=== PATIENT | female | born 1965 | race Caucasian/White ===

== ENCOUNTER 2020-07-09 14:36 | Observation (INO) ==
[2020-07-09] MEDS ORDERED: ASPIRIN 325 MG TABLET PO STA (14:51)
[2020-07-09] MEDS ORDERED: ONDANSETRON 4 MG/2 ML VIAL IV STA (16:44)
[2020-07-09] MEDS ORDERED: SODIUM CHLORIDE 0.9% 1,000 ML IV STA (16:44)
[2020-07-09] MEDS ORDERED: KETOROLAC 30 MG/1 ML VIAL IV STA (16:44)
[2020-07-09] MEDS ORDERED: PANTOPRAZOLE 40 MG VIAL IV STA (17:06)
[2020-07-09] MEDS ORDERED: MORPHINE 4 MG/1 ML VIAL IV STA (17:06)
[2020-07-09 17:55] LABS: Amorphous Crystals,Urine Occasional /HPF (Few); Bilirubin,Urine Negative (Negative); Blood, Urine Negative (Negative); Glucose,Urine (UA) Negative (Negative); Ketones,Urine Negative (Negative); Mucus,Urine Occasional /LPF (Occasional); Nitrite,Urine Negative (Negative); Protein,Urine Negative; Squamous Epithelial Cell,Urine Occasional /HPF (0-10); Urine Appearance CLEAR (Clear); Urine Color Yellow (Yellow); Urine Specific Gravity 1.009 (1.001-1.035); Urine Urobilinogen < 2.0 EU/DL (0.2-1.0)
[2020-07-09 18:08] LABS: Basophils # 0.1 10*3/uL (0.0-0.2); Basophils % 0.4 % (0.0-0.8); Eosinophils # 0.3 10*3/uL (0.0-0.87); Eosinophils % 2.1 % (0.00-10.9); Hematocrit 39.8 VOL% (35.7-47.0); Hemoglobin 12.3 GM/DL (12.0-16.0); Immature Granulocytes % 0.7 %; Immature Granulocytes Absolute 0.08 #; Lymphocytes # 2.1 10*3/uL (1.4-4.0); Lymphocytes % 18.1 % (21.3-54.2); Mean Corpuscular HGB Conc 30.9 GM/DL (32-36); Mean Corpuscular Volume 88.1 FL (87-102); Mean Platelet Volume 9.6 FL (9.6-12.0); Monocytes % 7.1 % (1.7-12.7); Neutrophils % 71.6 % (38.7-73.9); Platelet Count 326 T/CUMM (130-400); Red Blood Count 4.52 MC/CUMM (3.8-5.5); Red Cell Distribution Width 16.3 % (9.3-17.3); White Blood Count 11.7 T/CUMM (4-12)
[2020-07-09 18:19] LABS: Alanine Aminotransferase 20 U/L (13-56); Albumin 3.7 G/DL (3.4-5.0); Alkaline Phosphatase 77 U/L (45-117); Amylase 57 U/L (25-115); Aspartate Amino Transferase 21 U/L (0-37); Bilirubin,Total < 0.39 MG/DL (0.2-1.0); Blood Urea Nitrogen 19 MG/DL (7-18); Calcium 9.5 MG/DL (8.5-10.1); Carbon Dioxide 28 MMOL/L (21-32); Estimated Glom Filtration Rate 111 ML/MIN; Glucose 111 MG/DL (74-106); Osmolality,Calculated 281.4 MOS/KG (273-304); Potassium 4.2 MMOL/L (3.5-5.1); Sodium 140 MMOL/L (136-145); Total Protein 7.8 G/DL (6.4-8.2)
[2020-07-09] MEDS ORDERED: hydrOXYzine HCL 25 MG TABLET PO PRN (19:25)
[2020-07-09] MEDS ORDERED: ALBUTEROL 2.5 MG/3 ML NEB RESP TX PRN (19:25)
[2020-07-09] MEDS ORDERED: DEXTROSE 50% 25 GM/50 ML VIAL IV PRN (21:55)
[2020-07-09] MEDS ORDERED: GLUCAGON 1 MG VIAL IM PRN (21:55)
[2020-07-09] MEDS ORDERED: ACETAMINOPHEN 325 MG TABLET PO PRN (21:56)
[2020-07-09] MEDS ORDERED: BISACODYL 5 MG TABLET PO PRN (21:56)
[2020-07-09] MEDS ORDERED: NICOTINE 21 MG/24 HR PATCH TRANSDERM PRN (22:04)
[2020-07-09 22:33] LABS: Hemoglobin 11.2 GM/DL (12.0-16.0)
[2020-07-09] MEDS: SUCRALFATE 1 GM TABLET PO SCH (23:12)
[2020-07-09] MEDS: busPIRone 15 MG TABLET PO SCH (23:12)
[2020-07-09] MEDS: TOPIRAMATE 100 MG TABLET PO SCH (23:12)
[2020-07-10] MEDS: MORPHINE 4 MG/1 ML VIAL IV PRN ×4 (03:15→20:30)
[2020-07-10 06:13] LABS: Basophils % 0.4 % (0.0-0.8); Eosinophils # 0.2 10*3/uL (0.0-0.87); Eosinophils % 2.2 % (0.00-10.9); Hematocrit 38.3 VOL% (35.7-47.0); Hemoglobin 11.7 GM/DL (12.0-16.0); Immature Granulocytes % 0.5 %; Immature Granulocytes Absolute 0.05 #; Lymphocytes # 2.1 10*3/uL (1.4-4.0); Lymphocytes % 21.1 % (21.3-54.2); Mean Corpuscular HGB Conc 30.5 GM/DL (32-36); Mean Corpuscular Volume 89.3 FL (87-102); Mean Platelet Volume 10.1 FL (9.6-12.0); Monocytes % 6.7 % (1.7-12.7); Neutrophils % 69.1 % (38.7-73.9); Platelet Count 327 T/CUMM (130-400); Red Blood Count 4.29 MC/CUMM (3.8-5.5); Red Cell Distribution Width 16.6 % (9.3-17.3); White Blood Count 9.9 T/CUMM (4-12)
[2020-07-10 06:20] LABS: PT Patient Result 10.9 SECS (10.5-12.0)
[2020-07-10 06:42] LABS: Alanine Aminotransferase 16 U/L (13-56); Albumin 3.1 G/DL (3.4-5.0); Alkaline Phosphatase 68 U/L (45-117); Aspartate Amino Transferase 15 U/L (0-37); Bilirubin,Total < 0.39 MG/DL (0.2-1.0); Blood Urea Nitrogen 11 MG/DL (7-18); Carbon Dioxide 24 MMOL/L (21-32); Estimated Glom Filtration Rate 124 ML/MIN; Glucose 100 MG/DL (74-106); Osmolality,Calculated 281.1 MOS/KG (273-304); Potassium 3.9 MMOL/L (3.5-5.1); Sodium 142 MMOL/L (136-145); Total Protein 7.4 G/DL (6.4-8.2)
[2020-07-10 09:18] LABS: Hematocrit 38.9 VOL% (35.7-47.0)
[2020-07-10] MEDS: busPIRone 15 MG TABLET PO SCH ×2 (10:04→20:20)
[2020-07-10] MEDS: LURASIDONE 40 MG TABLET PO SCH (10:04)
[2020-07-10] MEDS: TOPIRAMATE 100 MG TABLET PO SCH ×2 (10:05→20:20)
[2020-07-10] MEDS: SUCRALFATE 1 GM TABLET PO SCH ×2 (10:05→20:20)
[2020-07-10] MEDS: ESTRADIOL 1 MG TABLET PO SCH (10:05)
[2020-07-10] MEDS: PANTOPRAZOLE 40 MG VIAL IV SCH ×2 (10:06→20:21)
[2020-07-10] MEDS: NON-FORMULARY MEDICATION (Cariprazine [Vraylar] 3 mg capsule) PO SCH (10:07)
[2020-07-10] MEDS: hydrOXYzine HCL 25 MG TABLET PO PRN (10:16)
[2020-07-10] MEDS: LORazepam 1 MG TABLET PO PRN ×2 (10:17→20:31)
[2020-07-10] MEDS ORDERED: POLYETHYLENE GLYCOL POWDER 17 GM PACK PO SCH (11:00)
[2020-07-10] MEDS: DOCUSATE SODIUM 100 MG CAPSULE PO SCH ×2 (12:00→20:20)
[2020-07-10 15:34] LABS: Hematocrit 37.3 VOL% (35.7-47.0); Hemoglobin 11.8 GM/DL (12.0-16.0)
[2020-07-10] MEDS: POLYETHYLENE GLYCOL POWDER 17 GM PACK PO SCH (20:21)
[2020-07-11] MEDS: MORPHINE 4 MG/1 ML VIAL IV PRN ×2 (04:20→09:24)
[2020-07-11] MEDS: ONDANSETRON 4 MG/2 ML VIAL IV PRN ×2 (04:21→09:35)
[2020-07-11 06:16] LABS: Basophils % 0.3 % (0.0-0.8); Eosinophils # 0.2 10*3/uL (0.0-0.87); Eosinophils % 1.8 % (0.00-10.9); Hematocrit 40.6 VOL% (35.7-47.0); Hemoglobin 12.5 GM/DL (12.0-16.0); Immature Granulocytes % 0.5 %; Immature Granulocytes Absolute 0.05 #; Lymphocytes # 2.1 10*3/uL (1.4-4.0); Lymphocytes % 22.1 % (21.3-54.2); Mean Corpuscular HGB Conc 30.8 GM/DL (32-36); Mean Corpuscular Volume 88.1 FL (87-102); Mean Platelet Volume 9.9 FL (9.6-12.0); Monocytes % 5.6 % (1.7-12.7); Neutrophils % 69.7 % (38.7-73.9); Platelet Count 380 T/CUMM (130-400); Red Blood Count 4.61 MC/CUMM (3.8-5.5); Red Cell Distribution Width 16.1 % (9.3-17.3); White Blood Count 9.3 T/CUMM (4-12)
[2020-07-11 06:38] LABS: Osmolality,Calculated 277.4 MOS/KG (273-304); Potassium 3.9 MMOL/L (3.5-5.1)
[2020-07-11] MEDS ORDERED: LACTATED RINGERS 1,000 ML IV SCH (08:00)
[2020-07-11] MEDS: LORazepam 1 MG TABLET PO PRN (11:28)
[2020-07-11] MEDS: hydrOXYzine HCL 25 MG TABLET PO PRN (11:28)
[2020-07-11] MEDS: busPIRone 15 MG TABLET PO SCH (11:29)
[2020-07-11] MEDS: PANTOPRAZOLE 40 MG VIAL IV SCH (11:29)
[2020-07-11] MEDS: LURASIDONE 40 MG TABLET PO SCH (11:29)
[2020-07-11] MEDS: DOCUSATE SODIUM 100 MG CAPSULE PO SCH (11:49)
[2020-07-11] MEDS: POLYETHYLENE GLYCOL POWDER 17 GM PACK PO SCH (11:49)
[2020-07-11] MEDS: NON-FORMULARY MEDICATION (Cariprazine [Vraylar] 3 mg capsule) PO SCH (11:49)
[2020-07-11] MEDS: TOPIRAMATE 100 MG TABLET PO SCH (11:49)
[2020-07-11] MEDS: SUCRALFATE 1 GM TABLET PO SCH (11:49)
[2020-07-11] MEDS: ESTRADIOL 1 MG TABLET PO SCH (11:49)
[2020-07-11] MEDS ORDERED: LIDOCAINE 2% 5 ML VIAL ONE (12:40)
[2020-07-11] MEDS ORDERED: propofoL 200 MG/20 ML VIAL IV ONE (12:40)
[2020-07-11 15:29] VITALS: BP 121/48
== END 2020-07-11 16:07 | disposition home or self-care (01) ==
LOC: N.ED 14:36 → N.EDINP 14:36 → N.5E 20:43
PROVIDERS: ADMIT Internal Medicine; ATTEND Internal Medicine

== ENCOUNTER 2020-09-08 08:35 | Inpatient (IN) ==
[2020-09-08 10:41] LABS: Basophils # 0.1 10*3/uL (0.0-0.2); Basophils % 0.6 % (0.0-0.8); Eosinophils # 0.2 10*3/uL (0.0-0.87); Eosinophils % 1.9 % (0.00-10.9); Hematocrit 41.2 VOL% (35.7-47.0); Hemoglobin 12.8 GM/DL (12.0-16.0); Immature Granulocytes % 0.7 %; Immature Granulocytes Absolute 0.06 #; Mean Corpuscular HGB Conc 31.1 GM/DL (32-36); Mean Corpuscular Volume 86.9 FL (87-102); Mean Platelet Volume 9.9 FL (9.6-12.0); Monocytes % 7.5 % (1.7-12.7); Neutrophils % 65.3 % (38.7-73.9); Platelet Count 343 T/CUMM (130-400); Red Blood Count 4.74 MC/CUMM (3.8-5.5); Red Cell Distribution Width 19.4 % (9.3-17.3); White Blood Count 8.3 T/CUMM (4-12)
[2020-09-08] MEDS ORDERED: ONDANSETRON 4 MG/2 ML VIAL IV STA (10:45)
[2020-09-08] MEDS ORDERED: SODIUM CHLORIDE 0.9% 1,000 ML IV STA (10:45)
[2020-09-08 10:54] LABS: Bilirubin,Urine Negative (Negative); Blood, Urine Moderate mg/dL (Negative); Glucose,Urine (UA) Negative (Negative); Ketones,Urine 20 mg/dL (Negative); Mucus,Urine Few /LPF (Occasional); Nitrite,Urine Negative (Negative); Protein,Urine 30 MG/DL; RBC,Urine 35 /HPF (0-4); Squamous Epithelial Cell,Urine Occasional /HPF (0-10); Urine Appearance CLEAR (Clear); Urine Color Yellow (Yellow); Urine Specific Gravity 1.026 (1.001-1.035); Urine Urobilinogen < 2.0 EU/DL (0.2-1.0)
[2020-09-08 11:09] LABS: Alanine Aminotransferase 18 U/L (13-56); Albumin 3.2 G/DL (3.4-5.0); Alkaline Phosphatase 135 U/L (45-117); Aspartate Amino Transferase 19 U/L (0-37); Bilirubin,Total < 0.39 MG/DL (0.20-1.00); Blood Urea Nitrogen 12 MG/DL (7-18); Calcium 8.5 MG/DL (8.5-10.1); Carbon Dioxide 28 MMOL/L (21-32); Estimated Glom Filtration Rate 114 ML/MIN; Glucose 86 MG/DL (74-106); Osmolality,Calculated 281.1 MOS/KG (273-304); Potassium 3.5 MMOL/L (3.5-5.1); Sodium 142 MMOL/L (136-145)
[2020-09-08] MEDS ORDERED: MORPHINE 2 MG/1 ML SYRINGE IV STA (13:01)
[2020-09-08] MEDS ORDERED: DEXTROSE 50% 25 GM/50 ML VIAL IV PRN (13:16)
[2020-09-08] MEDS ORDERED: GLUCAGON 1 MG VIAL IM PRN (13:16)
[2020-09-08 16:50] LABS: Hematocrit 42.2 VOL% (35.7-47.0); Hemoglobin 12.9 GM/DL (12.0-16.0)
[2020-09-08] MEDS: PANTOPRAZOLE 40 MG VIAL IV SCH ×2 (17:36→20:49)
[2020-09-08] MEDS: INSULIN LISPRO 100 UNIT/ML SUBCUT SCH ×2 (18:40→20:57)
[2020-09-08] MEDS: NICOTINE 21 MG/24 HR PATCH TRANSDERM SCH (18:49)
[2020-09-08] MEDS: MORPHINE 2 MG/1 ML SYRINGE IV PRN (19:31)
[2020-09-08 23:15] LABS: Hematocrit 36.7 VOL% (35.7-47.0); Hemoglobin 11.5 GM/DL (12.0-16.0)
[2020-09-09 01:05] LABS: Hematocrit 37.8 VOL% (35.7-47.0); Hemoglobin 11.3 GM/DL (12.0-16.0)
[2020-09-09 01:25] LABS: Albumin 2.8 G/DL (3.4-5.0); Bilirubin,Total 0.6 MG/DL (0.20-1.00); Calcium 8.4 MG/DL (8.5-10.1); Osmolality,Calculated 276.4 MOS/KG (273-304); Potassium 3.2 MMOL/L (3.5-5.1); Total Protein 6.3 G/DL (6.4-8.2)
[2020-09-09] MEDS: ONDANSETRON 4 MG/2 ML VIAL IV PRN ×3 (02:25→19:54)
[2020-09-09] MEDS: MORPHINE 2 MG/1 ML SYRINGE IV PRN ×5 (02:25→21:16)
[2020-09-09] MEDS ORDERED: hydrOXYzine HCL 25 MG TABLET PO PRN ×2 (05:24→05:27)
[2020-09-09] MEDS: LORazepam 1 MG TABLET PO PRN ×2 (05:33→17:15)
[2020-09-09] MEDS ORDERED: POTASSIUM CHLORIDE 20 MEQ TABLET PO ONE (08:16)
[2020-09-09 08:28] LABS: Hematocrit 37.6 VOL% (35.7-47.0); Hemoglobin 11.6 GM/DL (12.0-16.0)
[2020-09-09] MEDS: NICOTINE 21 MG/24 HR PATCH TRANSDERM SCH (08:45)
[2020-09-09] MEDS: PANTOPRAZOLE 40 MG VIAL IV SCH ×2 (08:47→19:59)
[2020-09-09] MEDS: INSULIN LISPRO 100 UNIT/ML SUBCUT SCH ×4 (09:09→20:00)
[2020-09-09] MEDS ORDERED: SUCRALFATE 1 GM TABLET PO PRN (17:32)
[2020-09-09] MEDS ORDERED: ALBUTEROL 2.5 MG/3 ML NEB RESP TX PRN (19:00)
[2020-09-09] MEDS: BUDESONIDE/FORMOTEROL 80-4.5 INHALER 6.9 GM INH PRN (19:55)
[2020-09-09] MEDS: TOPIRAMATE 100 MG TABLET PO SCH (19:59)
[2020-09-09] MEDS: FLUTICASONE/SALMETEROL 250-50 DISKUS 14 DOSE INH SCH (19:59)
[2020-09-09] MEDS: NYSTATIN CREAM 15 GM TUBE TOP SCH (22:41)
[2020-09-10] MEDS: MORPHINE 2 MG/1 ML SYRINGE IV PRN ×5 (01:39→21:23)
[2020-09-10 06:45] LABS: Basophils % 0.4 % (0.0-0.8); Eosinophils # 0.3 10*3/uL (0.0-0.87); Eosinophils % 4.2 % (0.00-10.9); Hemoglobin 11.1 GM/DL (12.0-16.0); Immature Granulocytes % 0.6 %; Immature Granulocytes Absolute 0.05 #; Lymphocytes % 38.1 % (21.3-54.2); Mean Corpuscular Volume 88.7 FL (87-102); Mean Platelet Volume 10.6 FL (9.6-12.0); Monocytes % 7.2 % (1.7-12.7); Neutrophils % 49.5 % (38.7-73.9); Platelet Count 332 T/CUMM (130-400); Red Blood Count 4.17 MC/CUMM (3.8-5.5); Red Cell Distribution Width 19.5 % (9.3-17.3); White Blood Count 7.9 T/CUMM (4-12)
[2020-09-10 07:01] LABS: Osmolality,Calculated 287.7 MOS/KG (273-304)
[2020-09-10] MEDS ORDERED: PANTOPRAZOLE INJ 80 MG in SODIUM CHLORIDE 0.9% 100 ML IV ONE (08:30)
[2020-09-10] MEDS ORDERED: POTASSIUM CHLORIDE 20 MEQ TABLET PO ONE (08:57)
[2020-09-10] MEDS: ONDANSETRON 4 MG/2 ML VIAL IV PRN ×2 (09:00→14:09)
[2020-09-10] MEDS: PANTOPRAZOLE 40 MG VIAL IV SCH ×2 (09:02→20:18)
[2020-09-10] MEDS: LURASIDONE 40 MG TABLET PO SCH (09:05)
[2020-09-10] MEDS: TOPIRAMATE 100 MG TABLET PO SCH ×2 (09:05→20:18)
[2020-09-10] MEDS: FLUTICASONE/SALMETEROL 250-50 DISKUS 14 DOSE INH SCH ×2 (09:09→20:17)
[2020-09-10] MEDS: NICOTINE 21 MG/24 HR PATCH TRANSDERM SCH (09:09)
[2020-09-10] MEDS: NYSTATIN CREAM 15 GM TUBE TOP SCH ×2 (09:09→20:23)
[2020-09-10] MEDS: INSULIN LISPRO 100 UNIT/ML SUBCUT SCH ×4 (09:13→20:27)
[2020-09-10] MEDS: LORazepam 1 MG TABLET PO PRN ×2 (09:29→20:18)
[2020-09-11] MEDS: MORPHINE 2 MG/1 ML SYRINGE IV PRN ×2 (01:30→06:02)
[2020-09-11 05:23] LABS: Basophils % 0.5 % (0.0-0.8); Eosinophils # 0.3 10*3/uL (0.0-0.87); Hematocrit 37.3 VOL% (35.7-47.0); Hemoglobin 11.4 GM/DL (12.0-16.0); Immature Granulocytes % 0.9 %; Immature Granulocytes Absolute 0.08 #; Lymphocytes # 2.5 10*3/uL (1.4-4.0); Lymphocytes % 28.9 % (21.3-54.2); Mean Corpuscular HGB Conc 30.6 GM/DL (32-36); Mean Corpuscular Volume 88.2 FL (87-102); Mean Platelet Volume 10.6 FL (9.6-12.0); Neutrophils % 58.7 % (38.7-73.9); Platelet Count 355 T/CUMM (130-400); Red Blood Count 4.23 MC/CUMM (3.8-5.5); Red Cell Distribution Width 19.9 % (9.3-17.3); White Blood Count 8.6 T/CUMM (4-12)
[2020-09-11 05:52] LABS: Osmolality,Calculated 287.6 MOS/KG (273-304); Potassium 3.8 MMOL/L (3.5-5.1)
[2020-09-11] MEDS ORDERED: LACTATED RINGERS 1,000 ML IV SCH (07:30)
[2020-09-11] MEDS: ONDANSETRON 4 MG/2 ML VIAL IV PRN (07:47)
[2020-09-11] MEDS ORDERED: FAMOTIDINE 20 MG/2 ML VIAL IV ONE (07:58)
[2020-09-11] MEDS ORDERED: propofoL 200 MG/20 ML VIAL IV ONE (08:06)
[2020-09-11] MEDS ORDERED: LIDOCAINE 2% 5 ML VIAL ONE (08:06)
[2020-09-11 08:55] VITALS: BP 124/59
[2020-09-11] MEDS: INSULIN LISPRO 100 UNIT/ML SUBCUT SCH (09:21)
[2020-09-11] MEDS: TOPIRAMATE 100 MG TABLET PO SCH (09:25)
[2020-09-11] MEDS: PANTOPRAZOLE 40 MG VIAL IV SCH (09:25)
[2020-09-11] MEDS: LURASIDONE 40 MG TABLET PO SCH (09:25)
[2020-09-11] MEDS: BUDESONIDE/FORMOTEROL 80-4.5 INHALER 6.9 GM INH PRN (09:27)
[2020-09-11] MEDS: FLUTICASONE/SALMETEROL 250-50 DISKUS 14 DOSE INH SCH (09:27)
[2020-09-11] MEDS: NICOTINE 21 MG/24 HR PATCH TRANSDERM SCH (09:27)
[2020-09-11] MEDS: NYSTATIN CREAM 15 GM TUBE TOP SCH (09:27)
== END 2020-09-11 10:47 | disposition left against medical advice (07) | DRG 379 ==
LOC: N.ED 08:35 → N.EDINP 13:17 → SUATTDRO 13:17 → N.5E 15:43 → N.4E 09-09 22:03
PROVIDERS: ADMIT Internal Medicine; ATTEND Internal Medicine

== ENCOUNTER 2021-04-14 08:59 | Inpatient (IN) ==
[2021-04-14] MEDS ORDERED: SODIUM CHLORIDE 0.9% 1,000 ML IV STA (09:34)
[2021-04-14 11:05] LABS: Basophils # 0.1 10*3/uL (0.0-0.2); Basophils % 0.5 % (0.0-0.8); Eosinophils # 0.2 10*3/uL (0.0-0.87); Hematocrit 40.5 VOL% (35.7-47.0); Hemoglobin 12.3 GM/DL (12.0-16.0); Immature Granulocytes % 3.1 %; Immature Granulocytes Absolute 0.47 #; Lymphocytes # 2.2 10*3/uL (1.4-4.0); Lymphocytes % 14.5 % (21.3-54.2); Mean Corpuscular HGB Conc 30.4 GM/DL (32-36); Mean Corpuscular Volume 83.9 FL (87-102); Monocytes % 5.2 % (1.7-12.7); Neutrophils % 75.7 % (38.7-73.9); Platelet Count 406 T/CUMM (130-400); Red Blood Count 4.83 MC/CUMM (3.8-5.5); Red Cell Distribution Width 22.5 % (9.3-17.3); White Blood Count 15.3 T/CUMM (4-12)
[2021-04-14 11:28] LABS: Bilirubin,Total 0.4 MG/DL (0.20-1.00); Calcium 8.6 MG/DL (8.5-10.1); Osmolality,Calculated 280.3 MOS/KG (273-304); Potassium 3.6 MMOL/L (3.5-5.1); Total Protein 7.5 G/DL (6.4-8.2)
[2021-04-14 11:44] LABS: Bacteria,Urine Occasional /HPF (Few); Bilirubin,Urine Negative (Negative); Blood, Urine Negative (Negative); Glucose,Urine (UA) Negative (Negative); Hyaline Casts,Urine 1 /LPF (0-3); Ketones,Urine 5 mg/dL (Negative); Mucus,Urine Occasional /LPF (Occasional); Nitrite,Urine Negative (Negative); Protein,Urine 30 MG/DL; RBC,Urine 4 /HPF (0-4); Squamous Epithelial Cell,Urine Occasional /HPF (0-10); Urine Appearance CLEAR (Clear); Urine Color Yellow (Yellow); Urine Specific Gravity 1.021 (1.001-1.035); Urine Urobilinogen < 2.0 EU/DL (<2.0)
[2021-04-14 11:46] LABS: Barbiturates Screen,Urine Negative (Negative); Benzodiazepines Screen,Urine Negative (Negative); Cannabinoid Screen,Urine Negative (Negative); Opiate Screen,Urine Positive (Negative); Phencyclidine Screen,Urine Negative (Negative)
[2021-04-14 11:52] LABS: Hypochromia 1+; Microcytosis 1+
[2021-04-14] MEDS ORDERED: LEVOFLOXACIN INJ 500 MG/100 ML PREMIX IV STA (13:30)
[2021-04-14] MEDS ORDERED: HALOPERIDOL 5 MG/ML AMP IV STA (13:42)
[2021-04-14 15:18] LABS: Acetaminophen < 2.0 UG/ML (10-30)
[2021-04-14] MEDS ORDERED: ONDANSETRON 4 MG/2 ML VIAL IV PRN (15:28)
[2021-04-14] MEDS ORDERED: DEXTROSE 10% 250 ML BAG IV PRN (15:28)
[2021-04-14] MEDS ORDERED: GLUCAGON 1 MG VIAL IM PRN (15:28)
[2021-04-14 15:31] LABS: Salicylate 52.3 MG/DL (2.8-20)
[2021-04-14] MEDS ORDERED: DEXTROSE 10% 250 ML BAG IV STA (15:50)
[2021-04-14] MEDS ORDERED: SODIUM BICARB INJ 50 MEQ in DEXTROSE 5% 1,000 ML IV SCH (16:00)
[2021-04-14 16:06] LABS: ABG HCO3 19.6 MMOL/L (20-26); ABG Oxygen Saturation 96.9 % (95-100); ABG PH 7.366 (7.35-7.45); ABG PO2 96.5 MM HG (80-95); ABG TCO2 20.7 MMOL/L (23-27)
[2021-04-14] MEDS: SODIUM CHLORIDE 0.9% 1,000 ML IV SCH (17:38)
[2021-04-14 17:48] VITALS: BP 121/62
[2021-04-14] MEDS: ENOXAPARIN 40 MG/0.4 ML SYRINGE SUBCUT SCH (21:50)
[2021-04-15 04:22] LABS: Basophils # 0.1 10*3/uL (0.0-0.2); Basophils % 0.4 % (0.0-0.8); Eosinophils # 0.1 10*3/uL (0.0-0.87); Eosinophils % 0.8 % (0.00-10.9); Hematocrit 37.7 VOL% (35.7-47.0); Hemoglobin 11.4 GM/DL (12.0-16.0); Immature Granulocytes % 1.4 %; Lymphocytes # 2.1 10*3/uL (1.4-4.0); Mean Corpuscular HGB Conc 30.2 GM/DL (32-36); Mean Corpuscular Volume 85.5 FL (87-102); Mean Platelet Volume 9.7 FL (9.6-12.0); Monocytes % 6.3 % (1.7-12.7); Neutrophils % 76.1 % (38.7-73.9); Platelet Count 341 T/CUMM (130-400); Red Blood Count 4.41 MC/CUMM (3.8-5.5); Red Cell Distribution Width 22.5 % (9.3-17.3)
[2021-04-15 04:37] LABS: Calcium 8.3 MG/DL (8.5-10.1); Osmolality,Calculated 277.4 MOS/KG (273-304)
[2021-04-15 04:49] LABS: Hypochromia 1+; Microcytosis 1+; Ovalocytes Slight; Platelet Estimate Normal
[2021-04-15] MEDS: SODIUM CHLORIDE 0.9% 1,000 ML IV SCH ×2 (06:54→09:37)
[2021-04-15] MEDS ORDERED: PANTOPRAZOLE 40 MG TABLET PO SCH (09:00)
[2021-04-15] MEDS: POTASSIUM CHLORIDE 20 MEQ TABLET PO SCH ×4 (09:27→22:01)
[2021-04-15] MEDS: buPROPion XL 150 MG TABLET PO SCH (11:30)
[2021-04-15] MEDS: TOPIRAMATE 100 MG TABLET PO SCH ×2 (11:30→21:40)
[2021-04-15] MEDS: VENLAFAXINE XR 75 MG CAPSULE PO SCH (11:30)
[2021-04-15] MEDS ORDERED: AZITHROMYCIN INJ 500 MG in SODIUM CHLORIDE 0.9% 250 ML IV SCH (12:00)
[2021-04-15] MEDS: LORazepam 1 MG TABLET PO PRN ×2 (16:00→22:10)
[2021-04-15] MEDS: ALUMINUM/MAGNES/SIMETH MAX STR 30 ML UDCUP PO PRN ×2 (17:52→21:40)
[2021-04-15] MEDS ORDERED: POTASSIUM CHLORIDE 20 MEQ TABLET PO ONE (21:38)
[2021-04-15] MEDS: ENOXAPARIN 40 MG/0.4 ML SYRINGE SUBCUT SCH (21:39)
[2021-04-15] MEDS: PANTOPRAZOLE 40 MG TABLET PO SCH (21:40)
[2021-04-16 04:18] LABS: Alanine Aminotransferase 19 U/L (13-56); Albumin 2.8 G/DL (3.4-5.0); Alkaline Phosphatase 74 U/L (45-117); Aspartate Amino Transferase 45 U/L (0-37); Bilirubin,Total < 0.39 MG/DL (0.20-1.00); Blood Urea Nitrogen 7 MG/DL (7-18); Calcium 8.8 MG/DL (8.5-10.1); Carbon Dioxide 27 MMOL/L (21-32); Estimated Glom Filtration Rate 119 ML/MIN; Glucose 89 MG/DL (74-106); Osmolality,Calculated 275.4 MOS/KG (273-304); Potassium 3.8 MMOL/L (3.5-5.1); Sodium 140 MMOL/L (136-145); Total Protein 6.6 G/DL (6.4-8.2)
[2021-04-16] MEDS: LORazepam 1 MG TABLET PO PRN (06:10)
[2021-04-16] MEDS: TOPIRAMATE 100 MG TABLET PO SCH (08:06)
[2021-04-16] MEDS: PANTOPRAZOLE 40 MG TABLET PO SCH (08:06)
[2021-04-16] MEDS: VENLAFAXINE XR 75 MG CAPSULE PO SCH (08:12)
[2021-04-16] MEDS: buPROPion XL 150 MG TABLET PO SCH (08:12)
== END 2021-04-16 12:57 | disposition home or self-care (01) | DRG 917 ==
LOC: N.ED 08:59 → SUATTDRO 15:28 → N.ICU 15:28
PROVIDERS: ADMIT Nurse Practitioner Adult Health; ATTEND Internal Medicine